=== PATIENT | female | born 2000 | race Caucasian/White ===

== ENCOUNTER 2021-08-29 11:16 | Emergency (ER) | payer SELFPAY ==
[2021-08-29] MEDS ORDERED: LACTATED RINGERS 1,000 ML IV ONE (11:50)
[2021-08-29] MEDS ORDERED: ACETAMINOPHEN 500 MG TAB PO STA (11:51)
--- NOTE | 2021-08-29 11:51 | Emergency Department Report ---
ED General Adult HPI - General Chief complaint: Fever Stated complaint: FEVER Time Seen by Provider: 08/29/21 11:33 Source: patient Mode of arrival: Ambulatory Limitations: Language Barrier - History of Present Illness Initial comments: 21-year-old female patient presents with complaints of sudden onset of tactile fevers, chills, body aches, cough, and lower abdominal pain starting yesterday. Patient states she is 16 weeks . She denies any vaginal bleeding, vaginal discharge, dyspareunia, but admits to some urinary frequency. She also states one episode of vomiting without hematemesis or coffee-ground emesis. No diarrhea, chest pain, hemoptysis or shortness of breath per patient. She also denies any leg pain or swelling. Patient is currently following with an [facility], however she is unsure of the name of the clinic/Dr. Patient states she is not vaccinated against COVID-19. She states possible loss of smell and is unsure of loss of taste Severity scale (0 -10): 5 - Related Data Previous Rx's Medication Instructions Recorded Last Taken Type Acetaminophen/Codeine [Tylenol 1 tab PO Q6H PRN #12 tab 02/16/20 Unknown Rx /Codeine # 3 tab] Clindamycin [Clindamycin CAP] 300 mg PO Q8HR #60 capsule 02/16/20 Unknown Rx Ibuprofen [Motrin] 600 mg PO Q8H PRN #30 tablet 02/16/20 Unknown Rx Ondansetron [Zofran Odt] 4 mg PO Q6HR PRN #15 tab.rapdis 02/16/20 Unknown Rx Sulfamethoxazole/Trimethoprim 1 each PO Q12H #20 tablet 02/16/20 Unknown Rx [Bactrim 400-80 mg Tablet] Acetaminophen 500 - 1,000 mg PO QID PRN #30 08/29/21 Unknown Rx capsule Ondansetron [Zofran Odt] 4 mg PO Q8HR PRN #20 tab.rapdis 08/29/21 Unknown Rx Allergies Allergy/AdvReac Type Severity Reaction Status Date / Time No Known Allergies Allergy Verified 08/29/21 11:19 ED Review of Systems ROS: Stated complaint: FEVER Other details as noted in HPI Constitutional: chills, fever, malaise. denies: diaphoresis, weakness Respiratory: cough. denies: shortness of breath Cardiovascular: denies: chest pain, edema, syncope Gastrointestinal: abdominal pain, nausea, vomiting. denies: constipation Genitourinary: as per HPI Skin: denies: lesions Neurological: denies: headache ED Past Medical Hx - Past Medical History Previous Medical History?: No - Surgical History Past Surgical History?: Yes Additional Surgical History: Lipo - Social History Smoking Status: Current Every Day Smoker Substance Use Type: None - Medications Home Medications: Home Medications Medication Instructions Recorded Confirmed Last Taken Type Acetaminophen/Codeine [Tylenol 1 tab PO Q6H PRN #12 tab 02/16/20 Unknown Rx /Codeine # 3 tab] Clindamycin [Clindamycin CAP] 300 mg PO Q8HR #60 capsule 02/16/20 Unknown Rx Ibuprofen [Motrin] 600 mg PO Q8H PRN #30 tablet 02/16/20 Unknown Rx Ondansetron [Zofran Odt] 4 mg PO Q6HR PRN #15 tab.rapdis 02/16/20 Unknown Rx Sulfamethoxazole/Trimethoprim 1 each PO Q12H #20 tablet 02/16/20 Unknown Rx [Bactrim 400-80 mg Tablet] Acetaminophen 500 - 1,000 mg PO QID PRN #30 08/29/21 Unknown Rx capsule Ondansetron [Zofran Odt] 4 mg PO Q8HR PRN #20 tab.rapdis 08/29/21 Unknown Rx ED Physical Exam - General Limitations: Language Barrier General appearance: alert, in no apparent distress - Head Head exam: Present: atraumatic, normocephalic - Neck Neck exam: Present: normal inspection - Respiratory Respiratory exam: Present: normal lung sounds bilaterally. Absent: respiratory distress - Cardiovascular Cardiovascular Exam: Present: regular rate, normal rhythm - GI/Abdominal GI/Abdominal exam: Present: soft, tenderness (Mild suprapubic), normal bowel sounds. Absent: guarding, rebound, rigid - Extremities Exam Extremities exam: Absent: calf tenderness (No swelling or pain noted bilaterally to legs) - Neurological Exam Neurological exam: Present: alert, oriented X3, normal gait - Psychiatric Psychiatric exam: Present: normal affect, normal mood - Skin Skin exam: Present: warm, dry, intact, normal color. Absent: rash ED Course Vital Signs 08/29/21 11:22 Temperature 99.5 F Pulse Rate 117 H Respiratory 20 Rate Blood Pressure 116/64 [Right] O2 Sat by Pulse 100 Oximetry ED Medical Decision Making - Lab Data Result diagrams: 08/29/21 11:58 08/29/21 11:58 Lab Results 08/29/21 08/29/21 08/29/21 Range/Units 11:58 11:58 11:58 WBC 8.5 (4.5-11.0) K/mm3 RBC 3.94 (3.65-5.03) M/mm3 Hgb 11.6 (10.1-14.3) gm/dl Hct 34.5 (30.3-42.9) % MCV 88 (79-97) fl MCH 29 (28-32) pg MCHC 34 (30-34) % RDW 12.6 L (13.2-15.2) % Plt Count 245 (140-440) K/mm3 Seg Neutrophils % Sprinkler Inspector Sodium 133 L (137-145) mmol/L Potassium 3.5 L (3.6-5.0) mmol/L Chloride 100.2 (98-107) mmol/L Carbon Dioxide 19 L (22-30) mmol/L Anion Gap 17 mmol/L BUN 11 (7-17) mg/dL Creatinine 0.6 (0.6-1.2) mg/dL Estimated GFR > 60 ml/min BUN/Creatinine Ratio 18 % Glucose 92 (65-100) mg/dL Calcium 9.0 (8.4-10.2) mg/dL Total Bilirubin 0.20 (0.1-1.2) mg/dL AST 18 (5-40) units/L ALT 22 (7-56) units/L Alkaline Phosphatase 63 (35-129) units/L Total Protein 7.0 (6.3-8.2) g/dL Albumin 3.9 (3.9-5) g/dL Albumin/Globulin Ratio 1.3 % HCG, Quant 12434 H (0-4) mIU/mL Urine Color (Yellow) Urine Turbidity (Clear) Urine pH (5.0-7.0) Ur Specific [place] (1.003-1.030) Urine Protein (Negative) mg/dL Urine Glucose (UA) (Negative) mg/dL Urine Ketones (Negative) mg/dL Urine Blood (Negative) Urine Nitrite (Negative) Urine Bilirubin (Negative) Urine Urobilinogen (<2.0) mg/dL Ur Leukocyte Esterase (Negative) Urine WBC (Auto) (0.0-6.0) /HPF Urine RBC (Auto) (0.0-6.0) /HPF U Epithel Cells (Auto) (0-13.0) /HPF 08/29/ Range/Units Unknown WBC (4.5-11.0) K/mm3 RBC (3.65-5.03) M/mm3 Hgb (10.1-14.3) gm/dl Hct (30.3-42.9) % MCV (79-97) fl MCH (28-32) pg MCHC (30-34) % RDW (13.2-15.2) % Plt Count (140-440) K/mm3 Seg Neutrophils % Sodium (137-145) mmol/L Potassium (3.6-5.0) mmol/L Chloride (98-107) mmol/L Carbon Dioxide (22-30) mmol/L Anion Gap mmol/L BUN (7-17) mg/dL Creatinine (0.6-1.2) mg/dL Estimated GFR ml/min BUN/Creatinine Ratio % Glucose (65-100) mg/dL Calcium (8.4-10.2) mg/dL Total Bilirubin (0.1-1.2) mg/dL AST (5-40) units/L ALT (7-56) units/L Alkaline Phosphatase (35-129) units/L Total Protein (6.3-8.2) g/dL Albumin (3.9-5) g/dL Albumin/Globulin Ratio % HCG, Quant (0-4) mIU/mL Urine Color Yellow (Yellow) Urine Turbidity Clear (Clear) Urine pH 6.0 (5.0-7.0) Ur Specific [place] 1.011 (1.003-1.030) Urine Protein <15 mg/dl (Negative) mg/dL Urine Glucose (UA) Neg (Negative) mg/dL Urine Ketones 80 (Negative) mg/dL Urine Blood Neg (Negative) Urine Nitrite Neg (Negative) Urine Bilirubin Neg (Negative) Urine Urobilinogen < 2.0 (<2.0) mg/dL Ur Leukocyte Esterase Neg (Negative) Urine WBC (Auto) 3.0 (0.0-6.0) /HPF Urine RBC (Auto) < 1.0 (0.0-6.0) /HPF U Epithel Cells (Auto) 10.0 (0-13.0) /HPF - Radiology Data Radiology results: report reviewed ULTRASOUND OBSTETRIC INDICATION / CLINICAL INFORMATION: pelvic pain. Clinical Gestational Age (GA): 16w5d TECHNIQUE: Transabdominal. COMPARISON: None available. FINDINGS: There is a single intrauterine . Biparietal Diameter = 3.5 cm = 16 weeks, 5 day(s). Head Circumference = 13.2 cm = 16 weeks, 6 day(s). Abdominal Circumference = 10.8 cm = 16 weeks, 5 day(s). Femur Length = 2.1 cm = 16 weeks, 1 day(s). Average Ultrasound Age (AUA) = 16 weeks, 4 day(s). Heart Rate: 169 beats per minute. Estimated Weight in grams (if calculated): 158 Estimated Weight Growth Percentile (if calculated): Position: cephalic. Cervix: closed. Length in cm (if measured): Placenta: posterior and free of the os. Amniotic Fluid Volume: normal Amniotic Fluid Index (GINA) in cm (if calculated): . Maternal Adnexa: No significant abnormality. IMPRESSION: 1. Single, living intrauterine with estimated sonographic age of 16 weeks, 4 day(s). 2. No significant sonographic abnormality. - Medical Decision Making 21-year-old female patient presents with complaints of sudden onset of tactile fevers, chills, body aches, cough, and lower abdominal pain starting yesterday. Patient states she is 16 weeks . She denies any vaginal bleeding, vaginal discharge, dyspareunia, but admits to some urinary frequency. She also states one episode of vomiting without hematemesis or coffee-ground emesis. No diarrhea, chest pain, hemoptysis or shortness of breath per patient. She also denies any leg pain or swelling. Patient is currently following with an [facility], however she is unsure of the name of the clinic/Dr. Patient states she is not vaccinated against COVID-19. She states possible loss of smell and is unsure of loss of taste No acute abnormalities noted on blood work or UA. Ultrasound shows viable 16- week without acute abnormalities. Patient given 1 L of LR and Zofran. She is now tolerating foods and fluids p.o. Repeat vitals shows heart rate of 99. Patient states her body aches and chills have resolved and that she is feeling well. She is well-appearing and stable for discharge home. Recommend outpatient COVID-19 testing within the next 24 to 48 hours and self quarantine until further instructed. Strict return precautions were discussed in detail with patient who verbalizes understanding. Patient to follow-up with her [facility] as scheduled this coming Tuesday Critical care attestation.: If time is entered above; I have spent that time in minutes in the direct care of this critically ill patient, excluding procedure time. ED Disposition Clinical Impression: Viral syndrome, Abdominal pain in Disposition: HOME / SELF CARE / HOMELESS Is pt being admited?: No Condition: Stable Instructions: Abdominal Pain During , [id number], Viral Respiratory Infection Additional Instructions: Please follow-up with your [facility] as scheduled on Tuesday Prescriptions: Acetaminophen 500 - 1,000 mg PO QID PRN #30 capsule PRN Reason: pain Ondansetron [Zofran Odt] 4 mg PO Q8HR PRN #20 tab.rapdis PRN Reason: Nausea Print Language: YI
[2021-08-29 12:19] LABS: Hematocrit 34.5 % (30.3-42.9); Hemoglobin 11.6 gm/dl (10.1-14.3); Mean Corpuscular HGB Conc 34 % (30-34); Mean Corpuscular Volume 88 fl (79-97); Platelet Count 245 K/mm3 (140-440); Red Blood Count 3.94 M/mm3 (3.65-5.03); Red Cell Distribution Width 12.6 % (13.2-15.2)
[2021-08-29 12:32] LABS: Alanine Aminotransferase 22 units/L (7-56); Albumin 3.9 g/dL (3.9-5); Blood Urea Nitrogen 11 mg/dL (7-17); Hemolysis Index 2
[2021-08-29 12:34] LABS: BUN/Creatinine Ratio 18
--- NOTE | 2021-08-29 13:11 | Ultrasound Report ---
ULTRASOUND OBSTETRIC INDICATION / CLINICAL INFORMATION: pelvic pain. Clinical Gestational Age (GA): 16w5d TECHNIQUE: Transabdominal. COMPARISON: None available. FINDINGS: There is a single intrauterine . Biparietal Diameter = 3.5 cm = 16 weeks, 5 day(s). Head Circumference = 13.2 cm = 16 weeks, 6 day(s). Abdominal Circumference = 10.8 cm = 16 weeks, 5 day(s). Femur Length = 2.1 cm = 16 weeks, 1 day(s). Average Ultrasound Age (AUA) = 16 weeks, 4 day(s). Heart Rate: 169 beats per minute. Estimated Weight in grams (if calculated): 158 Estimated Weight Growth Percentile (if calculated): Position: cephalic. Cervix: closed. Length in cm (if measured): Placenta: posterior and free of the os. Amniotic Fluid Volume: normal Amniotic Fluid Index (GINA) in cm (if calculated): . Maternal Adnexa: No significant abnormality. IMPRESSION: 1. Single, living intrauterine with estimated sonographic age of 16 weeks, 4 day(s). 2. No significant sonographic abnormality. Signer Name: Tomy Tee MD Signed: 08/29/2021 1:07 PM Workstation Name: [id number]
[2021-08-29] MEDS ORDERED: POTASSIUM CHLORIDE ER 20 MEQ TAB PO ONE (14:27)
[2021-08-29 15:22] LABS: Bilirubin,Urine NEG (Negative); Blood,Urine NEG (Negative); Color,Urine Yellow (Yellow); Protein,Urine <15 mg/dL mg/dL (Negative); RBC,Urine < 1.0 /HPF (0.0-6.0); Urobilinogen,Urine < 2.0 mg/dL (<2.0)
[2021-08-29 15:49] VITALS: BP 115/63
[2021-08-29 16:12] LABS: Total Cells Counted 100
[2021-08-29 16:14] LABS: Anisocytosis 1+
[2021-08-29 16:15] LABS: Platelet Estimate Consistent w Auto
== END 2021-08-29 16:05 | disposition home or self-care (01) ==
LOC: ED 11:16
DX: O99.512 Diseases of the respiratory system complicating pregnancy, second trimester (principal); F17.200 Nicotine dependence, unspecified, uncomplicated; B34.9 Viral infection, unspecified; R10.9 Unspecified abdominal pain; O26.892 Other specified pregnancy related conditions, second trimester; O99.332 Smoking (tobacco) complicating pregnancy, second trimester; Z3A.16 16 weeks gestation of pregnancy
CPT/HCPCS: 36415; 76805; 80053; 81001; 84702; 85007; 85025; 96360; 99284; J7120